=== PATIENT | female | born 1985 | race American Indian/Alaskan Native ===

== ENCOUNTER 2017-02-10 16:31 | Emergency (ER) | payer OTHER ==
[2017-02-10 17:20] LABS: Bilirubin,Urine NEG (Negative); Blood,Urine SM (Negative); Ketones,Urine NEG (Negative); Leukocyte Esterase,Urine NEG (Negative); Mucus,Urine FEW /HPF; Nitrite,Urine NEG (Negative); Protein,Urine <15 mg/dL mg/dL (Negative); Urobilinogen,Urine < 2.0 mg/dL (<2.0)
[2017-02-10 18:22] LABS: Basophils % (Auto) 1.1 % (0.0-1.8); Eosinophils % (Auto) 4.1 % (0.0-4.3); Hematocrit 41.2 % (30.3-42.9); Hemoglobin 13.8 gm/dl (10.1-14.3); Mean Corpuscular HGB Conc 33 % (30-34); Mean Corpuscular Hemoglobin 30 pg (28-32); Mean Corpuscular Volume 90 fl (79-97); Platelet Count 222 K/mm3 (140-440); Red Blood Count 4.59 M/mm3 (3.65-5.03); Red Cell Distribution Width 14.7 % (13.2-15.2); White Blood Count 4.4 K/mm3 (4.5-11.0)
[2017-02-10 18:47] LABS: Alanine Aminotransferase 7 units/L (7-56); Albumin 4.6 g/dL (3.9-5); Albumin/Globulin Ratio 1.4 %; Alkaline Phosphatase 73 units/L (35-129); Anion Gap 17 mmol/L; BUN/Creatinine Ratio 8.33; Bilirubin,Total 0.5 mg/dL (0.1-1.2); Blood Urea Nitrogen 5 mg/dL (7-17); Calcium 9.3 mg/dL (8.4-10.2); Carbon Dioxide 27 mmol/L (22-30); Chloride 101.2 mmol/L (98-107); Glucose 86 mg/dL (65-100); Lipase 12 units/L (13-60); Potassium 4.8 mmol/L (3.6-5.0); Sodium 140 mmol/L (137-145); Total Protein 7.8 g/dL (6.3-8.2)
[2017-02-10] MEDS ORDERED: NACL 0.9% 1000 ML 1,000 ML IV ONE (21:45)
[2017-02-10] MEDS ORDERED: MORPHINE IV ONE (21:46)
--- NOTE | 2017-02-10 21:48 | Emergency Department Report ---
HPI - General Chief Complaint: Abdominal Pain Time Seen by Provider: 02/10/17 21:44 - HPI HPI: This is a 31-year-old Afro-[place] female presents to the emergency department with acute on chronic lower abdominal and back cramps, diarrhea has been going on for the past few days. The patient says that this is an issue that she really has been dealing with for a few months and her primary care doctor thinks that she might have irritable bowel syndrome and she has an appointment with a label stamper, for the first time, on February 22. However the symptoms worsened recently and she took a lyft in to be seen today. Her primary care doctor is Darrel Casas. No recent travel or sick contacts at home. She otherwise denies any past medical history. She is not taken anything for symptoms prior to presentation. She denies any fever, nausea, vomiting, dysuria , vaginal bleeding, discharge. ED Past Medical Hx - Past Medical History Previous Medical History?: Yes Additional medical history: Constipation, diarrhea - Surgical History Past Surgical History?: Yes Additional Surgical History: LEEP - Social History Smoking Status: Current Every Day Smoker Substance Use Type: None - Medications Home Medications: Home Medications Medication Instructions Recorded Confirmed Last Taken Type Ibuprofen [Motrin 800 MG tab] 800 mg PO Q8HR PRN #20 tablet 02/11/17 Unknown Rx ED Review of Systems ROS: Stated complaint: IBS/CRAMPS/DIARRHEA Other details as noted in HPI Comment: All other systems reviewed and negative Constitutional: denies: chills, fever Eyes: denies: eye pain, eye discharge, vision change ENT: denies: ear pain, throat pain Respiratory: denies: cough, shortness of breath, wheezing Cardiovascular: denies: chest pain, palpitations Gastrointestinal: abdominal pain. denies: nausea, vomiting Genitourinary: denies: urgency, dysuria, discharge Musculoskeletal: back pain. denies: arthralgia Skin: denies: rash, lesions Neurological: denies: headache, weakness, paresthesias Physical Exam - Physical Exam Vital Signs: Vital Signs 02/10/17 16:38 Temperature 98.7 F Pulse Rate 92 H Respiratory 18 Rate Blood Pressure 127/80 O2 Sat by Pulse 99 Oximetry Physical Exam: GENERAL: The patient is well-developed well-nourished. HEENT: Normocephalic. Atraumatic. Extraocular motions are intact. Patient has moist mucous membranes. Pupils equal reactive to light bilaterally. NECK: Supple. Trachea is midline. CHEST/LUNGS: Clear to auscultation. There is no respiratory distress noted. HEART/CARDIOVASCULAR: Regular. There is no tachycardia. There is no gallop rub or murmur. ABDOMEN: Abdomen is soft. There is some mild generalized tenderness to palpation. No guarding or rebound tenderness. Patient has normal bowel sounds. There is no abdominal distention. SKIN: Skin is warm and dry. NEURO: The patient is awake, alert, and oriented. The patient is cooperative. The patient has no focal neurologic deficits. The patient has normal speech. Cranial nerves II through XII grossly intact. MUSCULOSKELETAL: There is no tenderness or deformity. There is no limitation range of motion. There is no evidence of acute injury. Muscle strength 5 out of 5 upper and lower extremities including EHL bilaterally. BACK: No midline thoracic or lumbar tenderness to palpation or deformity. Patient has some tenderness to palpation to the bilateral lumbar paraspinal muscles. ED Course Vital Signs 02/10/17 16:38 Temperature 98.7 F Pulse Rate 92 H Respiratory 18 Rate Blood Pressure 127/80 O2 Sat by Pulse 99 Oximetry ED Medical Decision Making - Lab Data Result diagrams: 02/10/17 18:03 02/10/17 18:03 - Radiology Data Radiology results: image reviewed interpreted by me: Abdominal x-ray shows some nonspecific nonobstructive bowel gas. - Medical Decision Making 31-year-old female presents to the emergency department with complaint of some lower abdominal and lower back pains. She recently has been having a lot of diarrhea but sometimes she has the opposite and has more of a constipation type symptoms. This is been going on for the past month or so but was bad this morning so she came in to be seen. It is appears that the patient might have irritable bowel syndrome but she is seeing a label stamper in a few weeks to start the workup for that condition. Patient's labs have been unremarkable today including normal belly labs, such as bilirubin, lipase and LFTs. Urinalysis does not show any urinary tract infection and the patient isn't . Abdominal x-ray shows nonspecific nonobstructive bowel gas. Patient was given a dose of pain medication. Upon reevaluation she is feeling much better with her abdominal pain being down to 0. With the patient being currently pain-free and/or asymptomatic, and with a normal-appearing abdominal x -ray, I did not feel that CT imaging of the abdomen was necessary at this time. Patient's back pain is also much improved and she does not have any significant issues with bladder function, numbness or paresthesias or any neurological deficits. There is low suspicion for any emergent back condition such as cauda equina, cord compression syndrome or epidural abscess. Patient will be discharged home with some pain medication and encouraged to follow up with her primary care doctor, before following up with the label stamper as previously planned. She will return to the ER with any worsening of her symptoms or any acute distress. - Differential Diagnosis IBS, colitis, , UTI, muscle spasm Critical Care Time: No Critical care attestation.: If time is entered above; I have spent that time in minutes in the direct care of this critically ill patient, excluding procedure time. ED Disposition Clinical Impression: Abdominal pain Qualifiers: Abdominal location: generalized Qualified Code(s): R10.84 - Generalized abdominal pain Back pain Qualifiers: Back pain location: low back pain Chronicity: unspecified Back pain laterality : bilateral Sciatica presence: without sciatica Qualified Code(s): M54.5 - Low back pain Diarrhea Qualifiers: Diarrhea type: unspecified type Qualified Code(s): R19.7 - Diarrhea, unspecified Disposition: DISCHARGED TO HOME OR SELFCARE Is pt being admited?: No Condition: Stable Instructions: Abdominal Pain (ED), Back Pain (ED), Acute Diarrhea (ED) Additional Instructions: Please increase your oral rehydration. Please follow-up with your primary care doctor in the next few days. Return to the emergency department with any worsening of your symptoms or any acute distress. You've been prescribed a medication that is sedating. Therefore this medication cannot be mixed with alcohol, or taken prior to driving, working, or being responsible for children. Prescriptions: Ibuprofen [Motrin 800 MG tab] 800 mg PO Q8HR PRN #20 tablet PRN Reason: Pain Referrals: DARREL KRAMER MD [Primary Care Provider] - 3-5 Days Time of Disposition: 00:44
--- NOTE | 2017-02-11 00:04 | XRay Report ---
FINAL REPORT EXAM: XR ABDOMEN 2V HISTORY: abd pain TECHNIQUE: 2 views of the abdomen. PRIORS: None currently available. FINDINGS: Bowel gas appearance is nonspecific and non-distended. There is no pneumoperitoneum. There is no air fluid level. There is no obstructive pattern. Mild stool is present. There are no suspicious calcifications overlying the renal shadows. Pelvic phleboliths. IUD is present within the pelvis. IMPRESSION: Nonspecific nonobstructive bowel gas pattern.
[2017-02-11 01:23] VITALS: BP 116/72
== END 2017-02-11 01:23 | disposition home or self-care (01) ==
LOC: ED 16:31
DX: R10.84 Generalized abdominal pain (principal); M54.5 Low back pain; R19.7 Diarrhea, unspecified; G89.29 Other chronic pain; F17.200 Nicotine dependence, unspecified, uncomplicated
CPT/HCPCS: 36415; 74020; 80053; 81001; 81025; 83690; 85025; 96361; 96374; 99284; J2270; J7030